=== PATIENT | female | born 1955 | race Caucasian/White ===

== ENCOUNTER 2020-02-14 10:45 | Outpatient (CLI) | payer BC, SELFPAY ==
--- NOTE | ~2020-02-14 | MM_ITS ---
EXAMINATION: MM screening arnel BI w [place] HISTORY: Screening mammogram, family history of breast cancer in her mother. TECHNIQUE: Craniocaudal and mediolateral oblique 3-D tomosynthesis images were obtained and synthetic 2-D images were generated. CAD analysis was submitted and interpreted. COMPARISON: 07/19/2018, 06/28/2018, 04/13/2017 BREAST PARENCHYMAL COMPOSITION: The breasts are heterogeneously dense, which may obscure small masses . FINDINGS: There is no evidence of suspicious mass, calcification, or architectural distortion to sugg est malignancy in either breast. There has been no suspicious interval change. IMPRESSION: 1. No mammographic evidence of malignancy. 2. Recommend routine screening mammography in one year. BI-RADS Category 1: Negative Reviewed, dictated and finalized at location A.
== END 2020-02-14 10:46 | disposition home or self-care (01) ==
LOC: ANHIMG 10:48
PROVIDERS: Visit Provider Advanced Practice Midwife
DX: Z12.31 Encounter for screening mammogram for malignant neoplasm of breast (principal)
CPT/HCPCS: 77063; 77067

== ENCOUNTER 2023-03-16 09:06 | Outpatient (CLI) | payer OTHER, SELFPAY ==
--- NOTE | ~2023-03-16 | MR_ITS ---
EXAMINATION: MR knee LT wo con DATE: 03/16/2023 09:44 INDICATION: Posterior left knee pain and swelling TECHNIQUE: Magnetic resonance imaging (MRI) of the left knee was performed without intravenous contra st. Sequences included coronal PD-weighted FSE, coronal PD-weighted FS FSE, sagittal T2-weighted FSE , sagittal PD-weighted FS FSE and axial PD weighted fat saturated FSE. COMPARISON: None. FINDINGS: Medial compartment: Radial tear/avulsion at the posterior root of the medial meniscus with approximately 1 cm wide menisc al defect and with medial extrusion of the meniscal body. There is an additional longitudinal horizon barry tear plane beginning in the anterior body which extends to the inferior articular surface and whi ch crosses the inner free edge to contact the superior articular surface at the anterior horn. Partia l-thickness chondral ulceration and fissuring which appears to involve greater than 50% the cartilage thickness at the anterior weightbearing medial femoral condyle with no underlying degenerative subar ticular changes. Lateral compartment: Lateral meniscus is normal. Partial-thickness chondral fissure involves up to 50% the cartilage thick ness at the central weightbearing lateral femoral condyle. Patellofemoral compartment: Deep chondral ulceration with scattered underlying subarticular edema-like signal change at both the medial lateral patellar facets and intervening apical ridge. Likely shallow chondral fissuring with s urface irregularity and heterogeneous cartilage signal at the inferior aspect of the trochlear groove and medial trochlea. Ligaments and tendons: There is mild magic angle artifact in the distal posterior cruciate ligament. The anterior cruciate l igament demonstrates a normal angle relative to Blumenstaat's line. It appears thickened with increas ed intrasubstance signal surrounding intact appearing linear fibers with a celery stalk appearance consistent with mucoid degeneration without discrete tear. The medial collateral ligament and fibular collateral ligament complex are normal. Mild tendinopathy at the patellar insertions of the distal q uadriceps and proximal patellar tendons. Moderate-sized enthesophytes at the superficial patellar ins ertion of the distal quadriceps tendon. The visualized medial and lateral hamstring tendons as well a s the iliotibial band are normal. Fluid: Physiologic amount of fluid in the joint space. No loose osteochondral bodies identified. Osseous/other: Bone alignment is normal. No fracture or pathologic marrow replacing process. IMPRESSION: 1. Complex medial meniscal tear including a radial tear/avulsion at the posterior root and a longitud inal horizontal tear at the anterior body and anterior horn. 2. Tricompartmental osteoarthritis, mild with high-grade chondral malacia the patellofemoral compartm ent, mild with extensive moderate grade chondromalacia in the medial compartment and minimal with sma ll focus of moderate grade chondromalacia the lateral compartment. 3. 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 Correlate with physical exam to assess for degree of functional integrity. Reviewed, dictated and finalized at location A. IMPRESSION: 1. Complex medial meniscal tear including a radial tear/avulsion at the posteri or root and a longitudinal horizontal tear at the anterior body and anterior ho rn. 2. Tricompartmental osteoarthritis, mild with high-grade chondral malacia the p atellofemoral compartment, mild with extensive moderate grade chondromalacia in the medial compartment and minimal with small focus of moderate grade chondrom alacia the lateral compartment. 3. 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
== END 2023-03-16 09:07 ==
PROVIDERS: PCP Orthopaedic Surgery; Visit Provider Orthopaedic Surgery
DX: M17.12 Unilateral primary osteoarthritis, left knee (principal); S83.232A Complex tear of medial meniscus, current injury, left knee, initial encounter; X58.XXXA Exposure to other specified factors, initial encounter
CPT/HCPCS: 73721

== ENCOUNTER 2023-04-08 03:48 | Day surgery (SDC) | payer OTHER, SELFPAY ==
--- NOTE | 2023-03-31 14:44 | PC.NURSE ---
Report to the Outpatient Waiting Room, entrance under the green pavilion located off [facility], at time _1100 on date __04/08/23 . Planned Procedure Time: __1300 . Time changes happen often and if your time is changed the preop area will call you the afternoon before. - You and your visitor will be asked to self-screen and do not enter if you have any COVID symptoms. - A mask is optional within the hospital at this time. Patients may have clear liquids (water, carbonated beverages, clear teas, apple juice) until 3 hours prior to surgery with a maximum of 20 ounces. - No food from midnight until time of surgery - Infants may have breast milk until 4 hours before surgery, formula 6 hours prior to surgery. - Children will be allowed to drink immediately following surgery. If applicable, please bring a bottle or sippy cup to assist with drinking. Juice, water, soda, and popsicles are readily available. For infants on formula, please bring formula the day of surgery. Pacifiers are allowed. Take the following medications with a SIP of water the morning of surgery: ____NONE DO NOT STOP ANY OF YOUR OTHER PRESCRIPTION MEDICATIONS PRIOR TO SURGERY ?EXCEPT THE FOLLOWING Medications to discontinue per physician ___ALL VITAMINS AND SUPPLEMENTS 3 DAYS PRE OP .LAST DOSE 04/04/23 Please no make-up, nail tajik, hairspray, perfume, deodorant, or body powder the day of surgery. No jewelry (including any body piercings) or valuables the day of surgery, leave them at home. Please take a shower or bath the night before, or the morning of, surgery with an antibacterial soap. Wear comfortable, loose fitting clothing. Children are encouraged to wear pajamas. - Jewelry must be removed prior to entering the operating room. Rings and piercings that are not removed may be cut off. - The hospital will not accept responsibility for valuables. - Please leave all valuables, including medications, at home the day of surgery. If you are going home after surgery, a licensed bung driver must drive you home. - NO public transportation without another adult if you receive anesthesia. - We recommend that an adult stay with you for 24 hours following discharge. - We also recommend that you do not drive, make important decision, drink alcoholic beverages, or take any drugs that were not prescribed by your health care provider for at least 24 hours after your discharge time. For Pediatric surgeries, we recommend two adults accompany the child home. Follow any additional instructions given to you from your surgeon. If you or anyone in your household have experienced Covid symptoms in the past week, please notify your surgeon or the nurse liaison at the phone number below for possible testing. Telephone instructions given to __PATIENT and asked if any additional questions and then verbalized understanding. Patient advised to call surgeon office or pre surgery nurse liaison [phone] if any additional questions.
[2023-03-31 14:58] VITALS: BMI 24.9
--- NOTE | 2023-04-07 14:23 | WPDANESEPPF ---
Anes - Initial Pre Proc Eval Procedure: Operation Date: 04/08/23 11:00 Proposed Procedures p Left Knee Arthroscopic Partial Medial Meniscectomy - Yrn Javier MD Date/Time: 04/07/23 14:23 Surgeon: Yrn Javier MD Pre Op Diagnosis: Lt Knee Medial Meniscus Tear Patient Data Age: 67 Gender: F Height: 1.63 m Weight: 65.8 kg Allergies Allergy/AdvReac Type Severity Reaction Status Date / Time Sulfa (Sulfonamide Allergy Unknown Swelling Verified 03/31/23 14:30 Antibiotics) of Lip/Tongue/Throat Home Medications Medication Instructions Recorded Confirmed Type fluticasone propionate 50 1 spray intranasal DAILY 02/07/22 03/31/23 History mcg/actuation nasal spray,suspension (Flonase Allergy Relief) omeprazole 40 mg capsule,delayed 40 mg PO DAILY 02/07/22 03/31/23 History release ascorbic acid (vitamin C) 1,000 mg 1 g PO DAILY 03/31/23 03/31/23 History tablet calcium carbonate 600 mg-vitamin 1 tablet PO DAILY 03/31/23 03/31/23 History D3 10 mcg (400 unit) tablet (Calcium 600 + D(3)) cholecalciferol (vitamin D3) 50 50 mcg PO DAILY 03/31/23 03/31/23 History mcg (2,000 unit) tablet cyanocobalamin (vitamin B-12) 1,000 mcg PO DAILY 03/31/23 03/31/23 History 1,000 mcg tablet magnesium citrate 100 mg capsule 250 mg PO DAILY 03/31/23 03/31/23 History multivitamin with minerals 1 tablet PO DAILY 03/31/23 03/31/23 History (Hair,Skin and Nails tablet) zinc 50 mg tablet 50 mg PO DAILY 03/31/23 03/31/23 History hydrocodone 5 mg-acetaminophen 325 1 - 2 tablet PO Q4-6H PRN pain #40 04/08/23 Rx mg tablet tabs Patient hx anesthesia problems: none Family hx anesthesia problems: none Results Review: All pre-operative results and documents have been reviewed as part of the pre-operative evaluation. [facility] Past Medical History Medical History (Updated 04/08/23 @ 08:21 by LIZ Jacobs) History of stress test Left knee pain SVT (supraventricular tachycardia) Surgical History Surgical History (Updated 04/07/23 @ 14:26 by Duncan Dasilva DO) History of cardiac radiofrequency ablation 2018 Hx of removal of ovary Hx of tonsillectomy Family History Family History Father Hypertension Mother Family history of malignant neoplasm Social History Social History Smoking status: Never smoker Alcohol intake: never Lack of Transportation: No Lack of Food: Never True Current Housing: I Have Housing Concerned About Future Housing: No Difficulty Paying Gas/Electric Bills: No Difficulty Paying for Meds: No Currently Unemployed: No Education: High School Diploma/GED Difficulty w/ Childcare or Family Care: No Living arrangements: with family Spiritual care concerns: No Anes - Eval Final PreProcedure Day of Procedure 04/07/23 14:23 Patient weight: normal Heart: regular rate and rhythm Lungs: clear to auscultation and normal air movement Airway: Mallampati scale class II Neurological: alert and oriented Last oral intake: >/= 8 hours ASA classification: III Emergent: no Anesthetic plan: proceed Anesthesia type and monitoring: general LMA and standard monitoring Results Review: All pre-operative results and documents have been reviewed as part of the pre-operative evaluation. Informed Consent: The patient's anesthetic plan and its attendant risks and benefits were discussed with the patient/family/POA. Questions were solicited and answers provided to the satisfaction of the patient/family/POA.
[2023-04-08] VITALS (8 sets, daily range): BP systolic 110–135; BP diastolic 59–93; PULSE 63–76; RESP 10–76; TEMP 36.8; O2SAT 100
[2023-04-08] MEDS: LACTATED RINGERS 1,000 ML 30 ML IV CONT (09:45)
[2023-04-08] MEDS: ACETAMINOPHEN 500 MG TABLET 1000 MG PO (10:00)
[2023-04-08] MEDS: KETOROLAC 15 MG/ML VIAL (*BKC) IV PUSH (10:00)
--- NOTE | 2023-04-08 10:22 | WPDHPUPDATE1 ---
History and Physical Update Update Date/Time: 04/08/23 10:22 History and Physical has been reviewed, including an updated exam of the patient. There are NO changes in the patient's condition. Risks, benefits, and alternatives have been discussed and questions answered. Patient agrees to proceed with procedure.
[2023-04-08] MEDS: ceFAZolin 2 GM/D5W 50 ML 2 GM/50 ML BAG IVPB (10:28)
[2023-04-08] MEDS: BUPIVACAINE/EPINEPHRINE 0.5% 50 ML VIAL 20 ML INFILTRATE (10:56)
--- NOTE | 2023-04-08 11:56 | P.OP_ITS ---
Procedure Note - Detailed Date of Procedure 04/08/23 Pre-op Diagnosis Lt Knee Medial Meniscus Tear Post-op Diagnosis Same Procedure Performed Arthroscopic partial medial meniscectomy, left knee. Surgeon Yrn Javier MD Anesthesia General Findings Complex posterior horn tear. Medial femur chondromalacia grade 2, medial tibia grade 2. Lateral femur chondromalacia grade 1, lateral tibia grade 0. Patellar grade 4, trochlea grade 2. Description of Procedure The patient was identified and the surgical site confirmed and signed in the preoperative holding area. Antibiotics were started per protocol. She was brought to the operative room and transferred to the OR table. A general anesthetic was administered. Supine position with the operative lower extremity position in the leg sandy after placement of a well padded tourniquet. The leg support was lowered and the contralateral limb was supported with a soft bolster. The knee was prepped and draped in the usual sterile fashion. A time- out was performed. The portal sites were marked and infiltrated with 0.5% Marcaine 20 mL. The limb was exsanguinated and the tourniquet inflated to 300 mL Hg. Standard inferolateral and inferomedial portals were established. Inflow was obtained with the saline pump. The camera was introduced. Diagnostic inspection of the joint was accomplished. The meniscus was debrided with the arthroscopic shaver and punches until stable. The radiofrequency probe was also used for further d?bridement. The arthroscopic instruments were removed. The tourniquet released and wounds closed with subcutaneous 4-0 Monocryl absorbable suture. Steri strips and a sterile dressing were applied. A light elastic wrap was placed. The patient was extubated and brought to the recovery room in stable condition. Estimated Blood Loss -5.0 Tourniquet Time 10 Drains No Complications No immediate complications Condition Stable Disposition PACU [facility] Billing Surgery - Charge Forward: Surgery Billing
== END 2023-04-08 13:30 | disposition home or self-care (01) ==
PROVIDERS: PCP Family Medicine; Visit Provider Orthopaedic Surgery
PROC: (CPT 29870; principal; 2023-04-08 11:00)
DX: S83.232A Complex tear of medial meniscus, current injury, left knee, initial encounter (principal); M94.262 Chondromalacia, left knee; Z79.891 Long term (current) use of opiate analgesic; Z79.51 Long term (current) use of inhaled steroids; Z86.79 Personal history of other diseases of the circulatory system; Z80.9 Family history of malignant neoplasm, unspecified; X58.XXXA Exposure to other specified factors, initial encounter
CPT/HCPCS: 29881; A9270; J0690; J1100; J1170; J1885; J2250; J2371; J2405; J2704; J3010; J7120

== ENCOUNTER 2023-05-26 01:06 | Day surgery (SDC) | payer MEDICARE, SELFPAY ==
[2023-05-22 14:11] VITALS: BMI 23.8
--- NOTE | 2023-05-22 14:19 | PC.NURSE ---
Report to the Outpatient Waiting Room, entrance under the green pavilion located off [facility], at time _0800 on date _05/26/23. Planned Procedure Time: __100_. Time changes happen often and if your time is changed the preop area will call you the afternoon before. - You and your visitor will be asked to self-screen and do not enter if you have any COVID symptoms. - A mask is optional within the hospital at this time. Patients may have clear liquids (water, carbonated beverages, clear teas, apple juice) until 3 hours prior to surgery with a maximum of 20 ounces. - No food from midnight until time of surgery - Infants may have breast milk until 4 hours before surgery, formula 6 hours prior to surgery. - Children will be allowed to drink immediately following surgery. If applicable, please bring a bottle or sippy cup to assist with drinking. Juice, water, soda, and popsicles are readily available. For infants on formula, please bring formula the day of surgery. Pacifiers are allowed. Take the following medications with a SIP of water the morning of surgery: _NONE DO NOT STOP ANY OF YOUR OTHER PRESCRIPTION MEDICATIONS PRIOR TO SURGERY ?EXCEPT THE FOLLOWING Medications to discontinue per physician VITAMINS/ SUPPLIMENTS Date to take last dose 05/22/23 Please no make-up, nail [place], hairspray, perfume, deodorant, or body powder the day of surgery. No jewelry (including any body piercings) or valuables the day of surgery, leave them at home. Please take a shower or bath the night before, or the morning of, surgery with an antibacterial soap. Wear comfortable, loose fitting clothing. Children are encouraged to wear pajamas. - Jewelry must be removed prior to entering the operating room. Rings and piercings that are not removed may be cut off. - The hospital will not accept responsibility for valuables. - Please leave all valuables, including medications, at home the day of surgery. If you are going home after surgery, a licensed bus van driver must drive you home. - NO public transportation without another adult if you receive anesthesia. - We recommend that an adult stay with you for 24 hours following discharge. - We also recommend that you do not drive, make important decision, drink alcoholic beverages, or take any drugs that were not prescribed by your health care provider for at least 24 hours after your discharge time. For Pediatric surgeries, we recommend two adults accompany the child home. Follow any additional instructions given to you from your surgeon. If you or anyone in your household have experienced Covid symptoms in the past week, please notify your surgeon or the nurse liaison at the phone number below for possible testing. Telephone instructions given to PATIENT__and asked if any additional questions and then verbalized understanding. Patient advised to call surgeon office or pre surgery nurse liaison [phone] if any additional questions.
[2023-05-26] MEDS: ACETAMINOPHEN 500 MG TABLET 1000 MG PO (08:24)
[2023-05-26 08:54] VITALS: BP 124/76; PULSE 78; RESP 16; TEMP 36.5; O2SAT 99
[2023-05-26] MEDS: LACTATED RINGERS 1,000 ML 30 ML IV CONT ×2 (09:25→11:23)
--- NOTE | 2023-05-26 09:32 | PM.IMHP ---
H&P: HPI History of Present Illness Date/Time: 05/26/23 09:32 Chief Complaint: Cervical dysplasia Narrative: this patient is a 67-year-old female with cervical dysplasia. We have agreed to complete the evaluation of her cervix and endometrium with a hysteroscopy D&C. She can not be monitored completely as an outpatient at this time. Her cervix is stenotic. She understands the procedure. He has been explained to her in detail. She understands the risks. She understands that injuries may occur that result in hospitalization, more surgery, and severe illness. She understands risks, benefits, and alternatives. She is completed the informed consent process is ready to proceed. She denies any nausea, vomiting, fever, chills. She denies any chest pain or shortness of breath. Review of Systems Review of Systems: All systems reviewed & are unremarkable except as noted in HPI and below Constitutional: Constitutional: Denies chills, Denies fatigue, Denies fever(s) and Denies weakness Eyes: Eyes: Denies blurry vision, Denies change in vision, Denies loss of peripheral vision, Denies loss of vision, Denies other visual disturbances and Denies eye pain ENT: Denies vertigo, Denies dizziness, Denies hearing loss, Denies mouth pain, Denies nasal obstruction, Denies neck mass and Denies neck pain Cardiovascular: Cardiovascular: Denies chest pain, Denies diaphoresis, Denies syncope, Denies leg edema and Denies dyspnea Respiratory: Respiratory: Denies chest congestion, Denies cough, Denies hemoptysis, Denies dyspnea and Denies wheezing Gastrointestinal: Gastrointestinal: Denies abdominal pain, Denies constipation, Denies diarrhea, Denies nausea and Denies vomiting Genitourinary: Genitourinary: Denies hematuria, Denies change in libido, Denies nocturia, Denies genital lesions, Denies flank pain and Denies urinary urgency Musculoskeletal: Musculoskeletal: Denies abnormal gait, Denies back pain, Denies myalgias, Denies arthralgias, Denies joint swelling, Denies muscle weakness and Denies neck pain Integumentary/Breasts: Skin/Breast: Denies swelling, Denies breast pain, Denies breast mass, Denies dry skin, Denies nipple discharge, Denies unusual bruising and Denies jaundice Neurologic: Denies Neuro-related abnormal movements, Denies Abnormal speech present, Denies abnormal gait, Denies behavioral changes, Denies confusion, Denies vertigo, Denies dizziness, Denies syncope, Denies loss of vision, Denies memory loss, Denies convulsions and Denies weakness Psychiatric: Psychiatric: Denies abnormal sleep pattern, Denies behavioral changes, Denies change in libido, Denies confusion, Denies depression, Denies anhedonia and Denies memory loss Endocrine: Endocrine: Reports no additional endocrine complaints, Denies change in libido and Denies fatigue Hematologic/Lymphatic: Hematologic/Lymphatic: Reports no additional hematologic/lymphatic complaints Allergic/Immunologic: Allergic/Immunologic: Reports no additional allergic/immunologic complaints and Denies wheezing PMFSH Past Medical History Medical History History of stress test Left knee pain SVT (supraventricular tachycardia) Surgical History Surgical History History of cardiac radiofrequency ablation 2018 Hx of removal of ovary Hx of tonsillectomy Status post medial meniscectomy of left knee (~04/08/23) Family History Family History Father Hypertension Mother Family history of malignant neoplasm Social History Social History Smoking packs per day: 0.5 Smoking cigarettes per day: 10.0 Years smoked: 10 Smoking pack-years: 5.00 Smoking status: Former smoker Additional smoking assessment comments: STOPPED 1999 Alcohol intake: current Drinks per week: 3 Lack of
--- NOTE | 2023-05-26 09:35 | WPDHPUPDATE1 ---
History and Physical Update Update Date/Time: 05/26/23 09:35 History and Physical has been reviewed, including an updated exam of the patient. There are NO changes in the patient's condition. Risks, benefits, and alternatives have been discussed and questions answered. Patient agrees to proceed with procedure.
--- NOTE | 2023-05-26 09:35 | WPDANESEPPF ---
Anes - Initial Pre Proc Eval Procedure: Operation Date: 05/26/23 10:00 Proposed Procedures p Hysteroscopy Dilation and Curettage with Endocervical Curettage - Anthony Whitley MD Date/Time: 05/26/23 09:35 Surgeon: Anthony Whitley MD Pre Op Diagnosis: dysplasia of cervix Patient Data Age: 67 Gender: F Height: 1.65 m Weight: 71.4 kg Last Vital Signs Temp 97.7 F 05/26/23 08:54 Pulse 78 05/26/23 08:54 Resp 16 05/26/23 08:54 BP 124/76 05/26/23 08:54 Pulse Ox 99 05/26/23 08:54 O2 Del Method Room Air 05/26/23 08:54 Allergies Allergy/AdvReac Type Severity Reaction Status Date / Time Sulfa (Sulfonamide Allergy Unknown Swelling Verified 05/26/23 08:22 Antibiotics) of Lip/Tongue/Throat Home Medications Medication Instructions Recorded Confirmed Type fluticasone propionate 50 1 spray intranasal DAILY 02/07/22 05/22/23 History mcg/actuation nasal spray,suspension (Flonase Allergy Relief) omeprazole 40 mg capsule,delayed 40 mg PO DAILY 02/07/22 05/22/23 History release ascorbic acid (vitamin C) 1,000 mg 1 g PO DAILY 03/31/23 05/22/23 History tablet calcium carbonate 600 mg-vitamin 2 tablet PO DAILY 03/31/23 05/22/23 History D3 10 mcg (400 unit) tablet (Calcium 600 + D(3)) cholecalciferol (vitamin D3) 50 50 mcg PO DAILY 03/31/23 05/22/23 History mcg (2,000 unit) tablet cyanocobalamin (vitamin B-12) 1,000 mcg PO DAILY 03/31/23 05/22/23 History 1,000 mcg tablet magnesium citrate 100 mg capsule 250 mg PO DAILY 03/31/23 05/22/23 History zinc 50 mg tablet 50 mg PO DAILY 03/31/23 05/22/23 History hydrocodone 5 mg-acetaminophen 325 1 - 2 tablet PO Q4-6H PRN pain #40 04/15/23 05/22/23 Rx mg tablet tabs Patient hx anesthesia problems: none Family hx anesthesia problems: none Results Review: All pre-operative results and documents have been reviewed as part of the pre-operative evaluation. PMFSH Past Medical History Medical History History of stress test Left knee pain SVT (supraventricular tachycardia) Surgical History Surgical History History of cardiac radiofrequency ablation 2018 Hx of removal of ovary Hx of tonsillectomy Status post medial meniscectomy of left knee (~04/08/23) Family History Family History Father Hypertension Mother Family history of malignant neoplasm Social History Social History Smoking packs per day: 0.5 Smoking cigarettes per day: 10.0 Years smoked: 10 Smoking pack-years: 5.00 Smoking status: Former smoker Additional smoking assessment comments: STOPPED 1999 Alcohol intake: current Drinks per week: 3 Lack of Transportation: No Lack of Food: Never True Current Housing: I Have Housing Concerned About Future Housing: No Difficulty Paying Gas/Electric Bills: No Difficulty Paying for Meds: No Currently Unemployed: No Education: High School Diploma/GED Difficulty w/ Childcare or Family Care: No Living arrangements: with family Spiritual care concerns: No Anes - Eval Final PreProcedure Day of Procedure 05/26/23 09:35 Patient weight: normal Heart: regular rate and rhythm Lungs: clear to auscultation Airway: Mallampati scale class II Neurological: alert and oriented Last oral intake: >/= 8 hours ASA classification: III Emergent: no Anesthetic plan: proceed Anesthesia type and monitoring: general GIVS and standard monitoring Results Review: All pre-operative results and documents have been reviewed as part of the pre-operative evaluation. Informed Consent: The patient's anesthetic plan and its attendant risks and benefits were discussed with the patient/family/POA. Questions were solicited and answers provided to the satisfaction of the patient/fam
[2023-05-26] MEDS: LIDOCAINE HCL 1% LOCAL INJ 20 ML VIAL 10 ML INFILTRATE (10:00)
[2023-05-26] MEDS: KETOROLAC 30 MG/ML VIAL (*BKC) IV PUSH (10:09)
[2023-05-26 10:44] VITALS: BP 125/77; PULSE 87; RESP 14; O2SAT 98
[2023-05-26] MEDS: fentaNYL CITRATE INJ (*CRX) 100 MCG/2 ML VIAL 25 MCG IV PUSH ×2 (10:53→10:57)
--- NOTE | 2023-05-26 11:02 | W.PM.PROC2 ---
Procedure Note - Detailed Date of Procedure 05/26/23 Pre-op Diagnosis dysplasia of cervix Post-op Diagnosis Same (With endometrial mass, irregular surface tissue of the endometrium) Procedure Performed Hysteroscopy D&C Surgeon Anthony Whitley MD Anesthesia MAC Indications abnormal uterine bleeding Findings Irregular endometrial surfaces with atypical appearance and endometrial mass. Murky, opaque white yellow fluid egress from the endometrial cavity. Profoundly scarred distal endocervix. Description of Procedure the patient was taken the operating room. She was prepped and draped in the dorsal lithotomy position after induction of mac anesthesia. A speculum was placed in the vagina. The cervix was grasped with a tenaculum. The cervix was dilated about 1 cm. attempted to dissect open the ectocervical os. This failed with false passages created. A excisional biopsy was performed of the central portion of the cervix in order to create a passageway to the endometrium. This would also provide a thorough biopsy the distal endocervix. Narrow top-hat was used to excise the central portion using cutting cautery. Cut surfaces were cauterized and Monsel's was applied at the end of the procedure. The hysteroscope was inserted. The intrauterine cavity and endocervix were evaluated. The above findings were noted. Hysteroscope was withdrawn. A medium-size curette was used to curettage all the surfaces were within the endometrial cavity. It is uncertain whether the endometrium was sampled. These false passages that were endocervical dissection were difficult to navigate. the sample was collected on Telfa and sent to pathology. The hysteroscope was reinserted and the above findings were noted. Patient tolerated the procedure well. The speculum and tenaculum were removed. She was taken recovery room in stable condition. Sponge lap and needle counts were correct x2. Estimated Blood Loss 40 Drains No Packing No Pathology Yes Complications No immediate complications Condition Stable Disposition PACU
[2023-05-26 11:10] VITALS: BP 122/73; PULSE 67; RESP 16; O2SAT 94
[2023-05-26] MEDS: oxyCODONE HCL (*CRX) 5 MG TAB IR PO (11:11)
[2023-05-26 11:40] VITALS: BP 144/76; PULSE 63; RESP 16; O2SAT 98
== END 2023-05-26 11:52 | disposition home or self-care (01) ==
PROVIDERS: PCP Family Medicine; Visit Provider Obstetrics & Gynecology
PROC: 0U5B8ZZ Destruction of Endometrium, Via Natural or Artificial Opening Endoscopic (ICD-10-PCS; CPT 58563; principal; 2023-05-26 10:00)
DX: N87.9 Dysplasia of cervix uteri, unspecified (principal); Z87.891 Personal history of nicotine dependence
CPT/HCPCS: 58558; 88305; A9270; J1100; J1885; J2250; J2405; J2704; J3010; J7120

== ENCOUNTER 2023-06-19 11:05 | Outpatient (CLI) | payer MEDICARE, SELFPAY ==
--- NOTE | 2023-06-19 11:16 | ECG_ITS ---
Measurements Intervals Ione Rate: 80 P: 4 KS: 145 QRS: -2 QRSD: 77 T: 10 QT: 355 QTc: 409 Interpretive Statements SINUS RHYTHM WITHIN NORMAL LIMITS NO PREVIOUS ECG AVAILABLE FOR COMPARISON Electronically Signed On 06-19-2023 13:58:50 [employer]G [employer] by Horacio Donnelly M.D.
[2023-06-19 11:38] LABS: Basophils Absolute Auto 0.1 K/mm3 (0.0-0.1); Basophils Percent Auto 0.6 % (0.2-1.2); Eosinophils Absolute Auto 0.1 K/mm3 (0-0.3); Eosinophils Percent Auto 0.6 % (0-4.4); Hematocrit 43.2 % (37.0-47.0); Hemoglobin 13.8 g/dL (12.0-15.0); Immature Granulocyte Absolute 0.02 K/mm3 (0.00-0.031); Immature Granulocyte Percent A 0.2 % (0-0.5); Lymphocytes Absolute Auto 1.75 K/mm3 (0.9-3.2); Lymphocytes Percent Auto 21.7 % (18.3-44.2); Mean Corpuscular HGB Conc 31.9 g/dl (32-36); Mean Corpuscular Hemoglobin 31.9 pg (26-34); Mean Platelet Volume 9.7 fl (7.4-10.4); Monocytes Absolute Auto 0.5 K/mm3 (0.1-0.6); Monocytes Percent Auto 5.8 % (2.6-8.5); Neutrophils Absolute Auto 5.7 K/mm3 (1.3-6.7); Neutrophils Percent Auto 71.1 % (45.5-73.1); Platelet Count Result 299 k/mm3 (150-375); Red Blood Count 4.32 M/mm3 (4.2-5.4); Red Cell Distribution Width 12.9 % (11.5-14.5); White Blood Count 8.1 K/mm3 (4.5-10.0)
[2023-06-19 11:49] LABS: Alanine Aminotransferase 30 U/L (6-35); Albumin Level 4.8 g/dL (3.5-5.1); Alkaline Phosphatase 112 U/L (38-126); Anion Gap 7 mmol/L (8-16); Aspartate Amino Transferase 30 U/L (14-36); Bilirubin,Total 0.6 mg/dL (0.2-1.3); Blood Urea Nitrogen 15 mg/dL (7-17); Carbon Dioxide 32 mmol/L (22-30); Chloride 101 mmol/L (98-107); Estimated Glomerular Filt Rate > 60; Glucose 98 mg/dL (65-110); Potassium 4.6 mmol/L (3.4-5.0); Sodium 140 mmol/L (137-145)
== END 2023-06-19 11:06 | disposition home or self-care (01) ==
LOC: ANHSURGERY 11:08
PROVIDERS: PCP Family Medicine; Visit Provider Obstetrics & Gynecology
DX: Z01.818 Encounter for other preprocedural examination (principal); D06.9 Carcinoma in situ of cervix, unspecified; Z86.79 Personal history of other diseases of the circulatory system
CPT/HCPCS: 36415; 80053; 85025; 86850; 86900; 86901; 93005

== ENCOUNTER 2023-07-01 18:04 | Inpatient (IN) | payer MEDICARE, SELFPAY ==
[2023-06-17 10:03] VITALS: BMI 25.7
--- NOTE | 2023-06-17 10:28 | PC.NURSE ---
Report to the Outpatient Waiting Room, entrance under the green pavilion located off [facility], at time __8:00AM on date __07/01/23 . Planned Procedure Time: _10:00AM . Time changes happen often and if your time is changed the preop area will call you the afternoon before. - You and your visitor will be asked to self-screen and do not enter if you have any COVID symptoms. - A mask is optional within the hospital at this time. Patients may have clear liquids (water, carbonated beverages, clear teas, apple juice) until 3 hours prior to surgery with a maximum of 20 ounces. - No food from midnight until time of surgery. Take the following medications with a SIP of water the morning of surgery: ____NONE DO NOT STOP ANY OF YOUR OTHER PRESCRIPTION MEDICATIONS PRIOR TO SURGERY ?EXCEPT THE FOLLOWING Medications to discontinue per physician __HOLD ALL VITAMINS/SUPPLEMENTS 3 DAYS PRE-OP PER ANESTHESIA Date to take last dose 06/27/23 Please no make-up, nail sami, hairspray, perfume, deodorant, or body powder the day of surgery. No jewelry (including any body piercings) or valuables the day of surgery, leave them at home. Please take a shower or bath the night before, or the morning of, surgery with an antibacterial soap. Wear comfortable, loose fitting clothing. - Jewelry must be removed prior to entering the operating room. Rings and piercings that are not removed may be cut off. - The hospital will not accept responsibility for valuables. - Please leave all valuables, including medications, at home the day of surgery. If you are going home after surgery, a licensed trencher driver must drive you home. - NO public transportation without another adult if you receive anesthesia. - We recommend that an adult stay with you for 24 hours following discharge. - We also recommend that you do not drive, make important decision, drink alcoholic beverages, or take any drugs that were not prescribed by your health care provider for at least 24 hours after your discharge time. Follow any additional instructions given to you from your surgeon. If you or anyone in your household have experienced Covid symptoms in the past week, please notify your surgeon or the nurse liaison at the phone number below for possible testing. Telephone instructions given to ____PATIENT and asked if any additional questions and then verbalized understanding. Patient advised to call surgeon office or pre surgery nurse liaison [phone] if any additional questions.
--- NOTE | 2023-06-30 14:18 | WPDANESEPPF ---
Anes - Initial Pre Proc Eval Procedure: Operation Date: 07/01/23 10:00 Proposed Procedures p Total Laparoscopic Hysterectomy with Left Salpingo-oophorectomy - Anthony Whitley MD Date/Time: 06/30/23 14:18 Surgeon: Anthony Whitley MD Pre Op Diagnosis: Lesion of Endometrium Patient Data Age: 67 Gender: F Height: 1.63 m Weight: 68 kg Allergies Allergy/AdvReac Type Severity Reaction Status Date / Time Sulfa (Sulfonamide Allergy Unknown Swelling Verified 07/01/23 08:28 Antibiotics) of Lip/Tongue/Throat Home Medications Medication Instructions Recorded Confirmed Type fluticasone propionate 50 1 spray intranasal DAILY 02/07/22 07/01/23 History mcg/actuation nasal spray,suspension (Flonase Allergy Relief) omeprazole 40 mg capsule,delayed 40 mg PO DAILY 02/07/22 07/01/23 History release ascorbic acid (vitamin C) 1,000 mg 1 g PO DAILY 03/31/23 07/01/23 History tablet calcium carbonate 600 mg-vitamin 2 tablet PO DAILY 03/31/23 07/01/23 History D3 10 mcg (400 unit) tablet (Calcium 600 + D(3)) cholecalciferol (vitamin D3) 50 50 mcg PO DAILY 03/31/23 07/01/23 History mcg (2,000 unit) tablet cyanocobalamin (vitamin B-12) 1,000 mcg PO DAILY 03/31/23 07/01/23 History 1,000 mcg tablet zinc 50 mg tablet 50 mg PO DAILY 03/31/23 07/01/23 History Patient hx anesthesia problems: none Family hx anesthesia problems: none Results Review: All pre-operative results and documents have been reviewed as part of the pre-operative evaluation. [facility] Past Medical History Medical History (Updated 06/30/23 @ 14:19 by Duncan Dasilva DO) GERD (gastroesophageal reflux disease) History of stress test Left knee pain SVT (supraventricular tachycardia) Surgical History Surgical History History of cardiac radiofrequency ablation 2018 Hx of removal of ovary Hx of tonsillectomy Status post medial meniscectomy of left knee (~04/08/23) Family History Family History Father Hypertension Mother Family history of malignant neoplasm Social History Social History Smoking packs per day: 1 Smoking cigarettes per day: 20.0 Years smoked: 8 Smoking pack-years: 8.00 Smoking status: Former smoker Tobacco type: cigarettes Smoking end date: 11/15/84 Additional smoking assessment comments: STOPPED 1999 Alcohol intake: current Drinks per week: 4 Lack of Transportation: No Lack of Food: Never True Current Housing: I Have Housing Concerned About Future Housing: No Difficulty Paying Gas/Electric Bills: No Difficulty Paying for Meds: No Currently Unemployed: No Education: High School Diploma/GED Difficulty w/ Childcare or Family Care: No Living arrangements: with family Additional living arrangements comments: DOM Spiritual care concerns: No Anes - Eval Final PreProcedure Day of Procedure 06/30/23 14:18 Patient weight: overweight Heart: regular rate and rhythm Lungs: clear to auscultation Airway: Mallampati scale class III Neurological: alert and oriented Last oral intake: >/= 8 hours ASA classification: III Emergent: no Anesthetic plan: proceed Anesthesia type and monitoring: general ETT and standard monitoring Results Review: All pre-operative results and documents have been reviewed as part of the pre-operative evaluation. Informed Consent: The patient's anesthetic plan and its attendant risks and benefits were discussed with the patient/family/POA. Questions were solicited and answers provided to the satisfaction of the patient/family/POA.
[2023-07-01] VITALS (9 sets, daily range): BP systolic 96–142; BP diastolic 55–90; PULSE 82–116; RESP 11–18; TEMP 36.1–37; O2SAT 96–100
--- NOTE | ~2023-07-01 | XR_ITS ---
EXAMINATION: XR fluoroscopy no charge DATE: 07/01/2023 15:53 INDICATION: Attempted stent placement TECHNIQUE: Single fluoroscopic image the lower pelvis was obtained during procedure performed by Dr. Dowling. Radiologist was not present for the imaging or procedure. The amount of fluoroscopy time us ed during this procedure was 0.1 minutes. COMPARISON: None. FINDINGS/IMPRESSION: Surgical instrumentation projects over the lower pelvis. See procedure note for further detail. Reviewed, dictated and finalized at location A. TENANT BALLISTICS
--- NOTE | ~2023-07-01 | XR_ITS ---
EXAMINATION: XR abdomen/kub 1V DATE: 07/01/2023 16:51 INDICATION: Right ureteral injury. TECHNIQUE: A supine view of the abdomen was obtained. COMPARISON: None. FINDINGS: There are no dilated loops of bowel. A surgical drain overlies the pelvis. There is a right internal ureteral stent in expected position. Skin iris are noted. IMPRESSION: 1. Right internal ureteral stent in expected position. Reviewed, dictated and finalized at location A. TERM CARE PHLEBOTOMIST
[2023-07-01] MEDS: ACETAMINOPHEN 500 MG TABLET 1000 MG PO (08:59)
[2023-07-01] MEDS: LACTATED RINGERS 1,000 ML 30 ML IV CONT ×5 (09:10→17:20)
[2023-07-01] MEDS: KETOROLAC 15 MG/ML VIAL (*BKC) IV PUSH (09:11)
--- NOTE | 2023-07-01 09:53 | PM.IMHP ---
H&P: HPI History of Present Illness Date/Time: 07/01/23 09:53 Chief Complaint: cervical dysplasia Narrative: This patient is a 67-year-old female with endometrial lesion, family history of ovarian cancer, and cervical dysplasia. We have agreed to perform total laparoscopic hysterectomy bilateral salpingo-oophorectomy. She understands the procedure. Has been explained her in detail. She understands the risks. She understands that injuries may occur that result in hospitalization, more surgery, and severe illness. She understands that there is risk of hemorrhage and infection. She denies any nausea, vomiting, fever, chills. She denies any chest pain or shortness of breath. Review of Systems Review of Systems: All systems reviewed & are unremarkable except as noted in HPI and below Constitutional: Constitutional: Denies chills, Denies fatigue, Denies fever(s) and Denies weakness Eyes: Eyes: Denies blurry vision, Denies change in vision, Denies loss of peripheral vision, Denies loss of vision, Denies other visual disturbances and Denies eye pain ENT: Denies vertigo, Denies dizziness, Denies hearing loss, Denies mouth pain, Denies nasal obstruction, Denies neck mass and Denies neck pain Cardiovascular: Cardiovascular: Denies chest pain, Denies diaphoresis, Denies syncope, Denies leg edema and Denies dyspnea Respiratory: Respiratory: Denies chest congestion, Denies cough, Denies hemoptysis, Denies dyspnea and Denies wheezing Gastrointestinal: Gastrointestinal: Denies abdominal pain, Denies constipation, Denies diarrhea, Denies nausea and Denies vomiting Genitourinary: Genitourinary: Denies hematuria, Denies change in libido, Denies nocturia, Denies genital lesions, Denies flank pain and Denies urinary urgency Musculoskeletal: Musculoskeletal: Denies abnormal gait, Denies back pain, Denies myalgias, Denies arthralgias, Denies joint swelling, Denies muscle weakness and Denies neck pain Integumentary/Breasts: Skin/Breast: Denies swelling, Denies breast pain, Denies breast mass, Denies dry skin, Denies nipple discharge, Denies unusual bruising and Denies jaundice Neurologic: Denies Neuro-related abnormal movements, Denies Abnormal speech present, Denies abnormal gait, Denies behavioral changes, Denies confusion, Denies vertigo, Denies dizziness, Denies syncope, Denies loss of vision, Denies memory loss, Denies convulsions and Denies weakness Psychiatric: Psychiatric: Denies abnormal sleep pattern, Denies behavioral changes, Denies change in libido, Denies confusion, Denies depression, Denies anhedonia and Denies memory loss Endocrine: Endocrine: Reports no additional endocrine complaints, Denies change in libido and Denies fatigue Hematologic/Lymphatic: Hematologic/Lymphatic: Reports no additional hematologic/lymphatic complaints Allergic/Immunologic: Allergic/Immunologic: Reports no additional allergic/immunologic complaints and Denies wheezing [facility] Past Medical History Medical History (Updated 07/01/23 @ 09:54 by Anthony Whitley MD) GERD (gastroesophageal reflux disease) History of stress test Left knee pain SVT (supraventricular tachycardia) Surgical History Surgical History History of cardiac radiofrequency ablation 2017 Hx of removal of ovary Hx of tonsillectomy Status post medial meniscectomy of left knee (~04/08/23) Family History Family History Father Hypertension Mother Family history of malignant neoplasm Social History Social History Smoking packs per day: 1 Smoking cigarettes per day: 20.0 Years smoked: 8 Smoking pack-years: 8.00 Smoking status: Former smoker Tobacco type: cigarettes Smoking end date: 11/15/84 Additional smoking assessment comments: STOPPED 1999 Alcohol intake: current Drinks per week: 4 Lack of Transportation: No
--- NOTE | 2023-07-01 09:55 | WPDHPUPDATE1 ---
History and Physical Update Update Date/Time: 07/01/23 09:55 History and Physical has been reviewed, including an updated exam of the patient. There are NO changes in the patient's condition. Risks, benefits, and alternatives have been discussed and questions answered. Patient agrees to proceed with procedure.
[2023-07-01] MEDS: ceFAZolin 2 GM/D5W 50 ML 2 GM/50 ML BAG IVPB (10:14)
[2023-07-01] MEDS: ceFAZolin SODIUM 1 GM VIAL (10:53)
--- NOTE | 2023-07-01 15:32 | W.PM.PROC2 ---
Procedure Note - Detailed Date of Procedure 07/01/23 Pre-op Diagnosis Lesion of Endometrium Right ureteral injury Post-op Diagnosis Same Procedure Performed Abdominal exploration in conjunction with Dr. Whitley Cystoscopy Right ureteral stent insertion Surgeon Mae Dyer MD Anesthesia General Indications This is a 67-year-old female who was taken to the operating room with OBGYN for laparoscopic hysterectomy, converted to open procedure. performed hysterectomy and at conclusion of case perform cystoscopy after IV indigo and identified blue dye from the left ureter and not the right ureteral orifice. The patient was then re-explored and a suture was removed fat the suspected to be surrounding the ureter. At this point urology was called emergently to the operating room for evaluation. Findings Apparent injury to right ureter with right ureteral stent placed easily. No bladder injury. Description of Procedure The patient was encountered asleep in the operating room with an open abdomen. We inspected the pelvis and the right ureter was identified without apparent injury or transection, however Dr. Whitley explained that stitch around the ureter was removed prior to my arrival to the operating. We then performed cystoscopy with a 22 F rigid cystoscope. Inspection of the bladder did not reveal any injury, the bladder was filled and there was no extravasation of fluid. We attempted to perform fluoroscopy however due to the bed in which the patient was positioned we could not reveal images of the ureter. Therefore we cannulated the right ureteral orifice with a 5 F open-ended catheter and advanced a Sensor wire. There was no resistance with placement of the wire. Over the wire we then placed a 6 F variable length stent again without resistance. A curl was noted in the bladder. De catheter was then inserted. At this point, we reinspected the abdominal incision and noted the ureteral stent to be appropriately palpable in the ureter. The case was then turned over to Dr. Whitley. - Plan KUB in recovery room to ensure appropriate proximal placement of stent - Plan FLORIDA creatinine prior to discharge from the hospital. -as long as no issues during hospital stay, we will plan right ureteral stent for 2 to 3 weeks. We will then plan a renal ultrasound and Lasix renal scan approximately 1 month after stent removal to ensure appropriate healing. Condition Stable Disposition Other
[2023-07-01] MEDS: ceFAZolin SODIUM 1 GM VIAL 2 GM IV PUSH (15:52)
--- NOTE | 2023-07-01 16:20 | SUR.OPER ---
Surgeon performed cystoscopy after closing of incision. Surgeon decided to re-open. Patient re-prepped and draped. New incision made at 13:50. Urology consulted. See surgeon's operative note. Chris Rosario RN
--- NOTE | 2023-07-01 16:32 | W.PM.PROC2 ---
Procedure Note - Detailed Date of Procedure 07/01/23 Pre-op Diagnosis Lesion of Endometrium, family history ovarian cancer, cervical dysplasia Post-op Diagnosis Same Procedure Performed total abdominal hysterectomy left salpingo-oophorectomy (Total laparoscopic hysterectomy converted to open laparotomy) Surgeon Anthony Whitley MD Anesthesia General Indications Cervical dysplasia, endometrial lesion, family history of ovarian cancer Findings dense scarring with vascularity throughout the pelvis. There was adhesions between left ovary and the colon, the left ovary in the rectum, the left ovary and the uterus, the left ovary and the pelvic sidewall. Dense adhesions around the right aspect of the lower uterine segment and cervix. Thickened tissue in this area with extreme vascularity. Adhesions between the rectum and the uterus Description of Procedure This patient was taken to the operating room. She was prepped and draped in the dorsal lithotomy position after induction of general anesthesia. The uterine manipulator and Gerald cup were placed. This was done with a speculum and tenaculum. The speculum was placed. The cervix was grasped with a tenaculum. The stay sutures were placed at 3 and 9:00 a.m.. The stay sutures of 0 Vicryl were brought through the appropriately sized Gerald cup. The tip of the OMI manipulator was placed in the intrauterine cavity. The cup was slid into place around the cervix and into the fornices. It was locked into place. The sutures were then wrapped around the handle and tied under tension. A 5 mm skin incision was made in the left upper quadrant the abdomen. A 5 mm trocar was inserted into the intrauterine cavity under direct visualization of the scope. Pneumoperitoneum was achieved. A left lower quadrant 11 mm incision was made with scalpel. An 11 mm trocar was inserted into the anterior abdominal cavity under direct visualization the scope. A 5 mm infraumbilical incision was made with a scalpel and a 5 mm trocar was inserted the intra-abdominal cavity under direct visualization of the scope. after 15 minutes of adhesiolysis the case was converted to an open laparotomy. A skin incision was made from the infraumbilical laparoscopic it decision she does suprapubic area. This made with a scalpel and carried down to the fascia. rectus muscle were the preperitoneal fat was dissected bluntly. The peritoneal cavity was entered bluntly. The peritoneal incision was extended superiorly and inferiorly with good dissolution the bladder. A bowel for retractor was placed in the abdomen. The bowel was packed into the upper abdomen and a retractor affixed to the upper arm was placed. A bladder blade was also inserted with the bowel for retractor. 2 hours of adhesiolysis was performed in the pelvis. Rectum was from the uterus. Lateral aspects of the uterus were clamped with Leatha clamps in a stepwise fashion as they were transected and suture ligated down to the level of the uterine arteries. As mentioned above there was marked dense, vascular scar tissue around the right parametrium and paracervical tissue. Clamps and this area were placed very tightly along the uterus. They were suture ligated. This was the area that would later become of concern as the ureter was either kinked or ligated with suture in this area. the ureters were palpated bilaterally. They were felt to be adequately away from the uterus and cervix. The cervical paracervical tissue was clamped and cut in stepwise fashion down the vaginal cuff. The vaginal cuff incision was made with Quang scissors. This was made in circumferential fashion around the cervix and cervix was amputated the cuff was closed with 0 Vicryl running fashion. Throughout the case small bleeding areas had to be addressed. Cautery was used, sutures were used, along with the section. adhesiolysis was performed around the left ovary. Blunt and sharp disse
[2023-07-01] MEDS: fentaNYL CITRATE INJ (*CRX) 100 MCG/2 ML VIAL 25 MCG IV PUSH ×6 (16:36→17:28)
--- NOTE | 2023-07-01 16:43 | SUR.PHASEI ---
PORTABLE KUB DONE.
--- NOTE | 2023-07-01 16:55 | SUR.PHASEI ---
DR. TAMAYO NOTIFIED RE: BLOOD PRESSURES TRENDING DOWN SOMEWHAT; INSTRUCTED TO GIVE 5TH LITER OF LR.
--- NOTE | 2023-07-01 18:07 | SUR.PHASEI ---
5TH BAG OF LR WAS HUNG AT 1730; 600 INFUSED.
--- NOTE | 2023-07-01 18:23 | OBPPTRN ---
1813 Patient transferred to post room #281 via bed. Support person present. Oriented to unit, room, information board, admission packet and security measures. Patient verbalizes understanding.
[2023-07-01] MEDS: ONDANSETRON INJ 4 MG/2 ML VIAL IV PUSH (18:54)
[2023-07-01] MEDS: KETOROLAC 30 MG/ML VIAL (*BKC) IV PUSH (21:55)
[2023-07-01] MEDS: HYDROcodone/acetaminophen (*CRX) 10-325 MG TABLET 1 TAB PO (21:56)
[2023-07-01] MEDS: SIMETHICONE 80 MG TAB.CHEW PO (21:56)
[2023-07-02] MEDS: SIMETHICONE 80 MG TAB.CHEW PO ×5 (01:11→19:45)
[2023-07-02] MEDS: HYDROcodone/acetaminophen (*CRX) 10-325 MG TABLET 1 TAB PO ×7 (01:11→23:18)
[2023-07-02] MEDS: KETOROLAC 30 MG/ML VIAL (*BKC) IV PUSH (04:44)
[2023-07-02] MEDS: ONDANSETRON INJ 4 MG/2 ML VIAL IV PUSH (04:44)
[2023-07-02 05:00] VITALS: BP 128/83; PULSE 117; RESP 18; TEMP 36.9; O2SAT 96
[2023-07-02 05:20] LABS: Basophils Percent Auto 0.1 % (0.2-1.2); Hematocrit 28.5 % (37.0-47.0); Hemoglobin 9.6 g/dL (12.0-15.0); Immature Granulocyte Absolute 0.09 K/mm3 (0.00-0.031); Immature Granulocyte Percent A 0.5 % (0-0.5); Lymphocytes Absolute Auto 1.04 K/mm3 (0.9-3.2); Lymphocytes Percent Auto 5.5 % (18.3-44.2); Mean Corpuscular HGB Conc 33.7 g/dl (32-36); Mean Corpuscular Volume 97.9 fl (80-100); Monocytes Absolute Auto 1.3 K/mm3 (0.1-0.6); Monocytes Percent Auto 6.6 % (2.6-8.5); Neutrophils Absolute Auto 16.6 K/mm3 (1.3-6.7); Neutrophils Percent Auto 87.3 % (45.5-73.1); Platelet Count Result 257 k/mm3 (150-375); Red Blood Count 2.91 M/mm3 (4.2-5.4); Red Cell Distribution Width 13.1 % (11.5-14.5)
[2023-07-02 05:31] LABS: Anion Gap 6 mmol/L (8-16); Blood Urea Nitrogen 19 mg/dL (7-17); Calcium 8.4 mg/dL (8.4-10.2); Carbon Dioxide 25 mmol/L (22-30); Chloride 103 mmol/L (98-107); Estimated CRCL calculation 66 ml/min; Estimated Glomerular Filt Rate > 60; Glucose 140 mg/dL (65-110); Potassium 4.4 mmol/L (3.4-5.0); Sodium 134 mmol/L (137-145)
[2023-07-02 08:45] VITALS: BP 111/73; PULSE 108; RESP 16; TEMP 37.1; O2SAT 94
[2023-07-02] MEDS: ENOXAPARIN 40 MG/0.4 ML SYRINGE SUB-Q (09:13)
--- NOTE | 2023-07-02 09:18 | WPDUROPN2 ---
Progress Note: A&P Assessment and Plan (1) Status post hysterectomy: Code(s): Z90.710 - Acquired absence of both cervix and uterus Status: Acute Assessment and Plan: Underwent total abdominal hysterectomy on 07/01/[address] Whitley (2) Right ureteral injury: Qualifiers: Encounter type: initial encounter Qualified Code(s): S37.10XA - Unspecified injury of ureter, initial encounter Code(s): S37.10XA - Unspecified injury of ureter, initial encounter Status: Acute Assessment and Plan: Occurred during open abdominal hysterectomy. Right ureteral stent placed on 07/01/[address] Dyer. KUB showed stent in expected position. Will obtain [place] creatinine labs tomorrow. Serum creatinine is within normal limits. Will plan for stent for 6 weeks and follow-up with Dr. Nj in the office for stent removal with follow-up renal ultrasound and Lasix renal scan 1 month later to ensure appropriate healing. Subjective Subjective Date/Time Seen: 07/02/23 09:18 Interval history: Marga is feeling well today. She endorses abdominal soreness. Denies nausea, vomiting, fever or chills. Reports no issues with De catheter which is draining anderson colored urine. [place] drain has moderate amount of bloody output. She is mildly tachycardic but remains afebrile. WBC is 19.0. Creatinine is within normal limits at 0.7. Review of Systems Review of Systems: All systems reviewed & are unremarkable except as noted in HPI and below Exam Narrative: General: Awake, alert, comfortable, no acute distress HEENT: Normocephalic, atraumatic, sclerae anicteric Respiratory: Normal respiratory effort, no accessory muscle use Abdomen: Abdominal incision covered with dressing that is clean and dry : De catheter draining anderson colored urine, [place] drain with bloody output Skin: Normal coloration, warm and dry Neurologic: No focal neuro deficits noted Psychiatric: Appropriate mood and affect, judgment and insight intact Objective Data Vital Signs Vital Signs: Vital Signs - 24 hr 07/01/23 09:22 07/01/23 16:10 07/01/23 16:25 Temperature 98.5 F 97 F L Pulse Rate 82 103 H 102 H Respiratory Rate 18 13 11 L Blood Pressure 142/90 H 132/86 105/57 L Pulse Oximetry 98 100 100 Oxygen Delivery Room Air Simple Face Mask Simple Face Mask Oxygen Flow Rate 8 8 07/01/23 16:40 07/01/23 16:55 07/01/23 17:10 Temperature Pulse Rate 107 H 110 H 105 H Respiratory Rate 12 12 12 Blood Pressure 96/55 L 103/62 109/69 Pulse Oximetry 100 98 98 Oxygen Delivery Simple Face Mask Room Air Room Air Oxygen Flow Rate 8 07/01/23 17:25 07/01/23 17:40 07/01/23 19:10 Temperature 98.6 F Pulse Rate 116 H 103 H 101 H Respiratory Rate 12 11 L 18 Blood Pressure 109/69 112/71 127/78 Pulse Oximetry 99 99 96 Oxygen Delivery Room Air Room Air Oxygen Flow Rate 07/02/23 05:00 Temperature 98.4 F Pulse Rate 117 H Respiratory Rate 18 Blood Pressure 128/83 Pulse Oximetry 96 Oxygen Delivery Oxygen Flow Rate Intake/Output Intake/Output: Intake & Output 06/29/23 06/30/23 07/01/23 07/02/23 23:59 23:59 23:59 23:59 Intake Total 2550 Output Total 260 650 Balance 2290 -650 Meds/Results Medications: Active Medications Generic Name Dose Route Start Last Admin Trade Name Freq PRN Reason Stop Dose Admin Hydrocodone Bitart/Acetaminophen 1 tab 07/01/23 16:27 Hydrocodone/Acetaminophen (*Crx) 5-325 Mg Tablet PO Q3H PRN Pain Rated 5 or Less Hydrocodone Bitart/Acetaminophen 1 tab 07/01/23 16:27 07/02/23 09:12 Hydrocodone/Acetaminophen (*Crx) 10-325 Mg Tablet PO 1 tab Q3H PRN Administration Pain Rated 6 or Greater Enoxaparin Sodium 40 mg 07/02/23 09:00 07/02/23 09:13 Enoxaparin 40 Mg/0.4 Ml Syringe SUB-Q 40 mg DAILY EDI Administration Lactated Ringer's 1,000 mls @ 30 mls/hr 06/30/23 14:20 07/01/23 19:16 Lr - Lactated Ringers Iv IV
--- NOTE | 2023-07-02 10:11 | WPDANESPN ---
Anes - Prog Note Post-Op Date/Time: 07/02/23 10:11 Cardiovascular status: normal Respiratory status: normal Airway patency: baseline Mental status: baseline Post-Op hydration status: normal Vital Signs: Last Vital Signs Temp 37.1 C 07/02/23 08:45 Pulse 108 H 07/02/23 08:45 Resp 16 07/02/23 08:45 BP 111/73 07/02/23 08:45 Pulse Ox 94 07/02/23 08:45 O2 Del Method Room Air 07/01/23 17:40 O2 Flow Rate 8 07/01/23 16:40 Pain Score (VAS): 07/25 I/O: Intake & Output 07/01/23 07/02/23 07/02/23 23:59 07:59 15:59 Intake Total 2500 150 Output Total 260 650 250 Balance 2240 -650 -100 Laboratory Tests 07/02/23 05:11 07/02/23 05:11 07/02/23 05:11 WBC 19.0 H RBC 2.91 L Hgb 9.6 L D Hct 28.5 L MCV 97.9 MCH 33.0 MCHC 33.7 RDW 13.1 Plt Count 257 MPV 10.0 Immature Gran % (Auto) 0.5 Neut % (Auto) 87.3 H Lymph % (Auto) 5.5 L Calhoun % (Auto) 6.6 Eos % (Auto) 0.0 Baso % (Auto) 0.1 L Lymph # (Auto) 1.04 Calhoun # (Auto) 1.3 H Eos # (Auto) 0.0 Baso # (Auto) 0.0 Abs Immat Gran (auto) 0.09 H Absolute Neuts (auto) 16.6 H Absolute Nucleated RBC 0.0 Nucleated RBC % 0.0 Sodium 134 L Potassium 4.4 Chloride 103 Carbon Dioxide 25 Anion Gap 6 L BUN 19 H Creatinine 0.70 Estim Creat Clear Calc 66 Estimated GFR > 60 Glucose 140 H Calcium 8.4 Post-procedural complaints: nausea (resolved this morning ) Patient Feedback: Patient satisfied with anesthetic care.
--- NOTE | 2023-07-02 10:43 | PM.GYNPNOP ---
GOLF COURSE RANGER - A/P Assessment and plan (1) Encounter for postoperative care: Code(s): Z48.89 - Encounter for other specified surgical aftercare Status: Acute (2) Ureter injury: Code(s): S37.10XA - Unspecified injury of ureter, initial encounter Status: Acute Plan 67-year-old female postop day 1 from a total abdominal hysterectomy, left salpingo-oophorectomy and lengthy adhesiolysis. She had ureter injury that was remedied with ureteral stent. Normal-appearing recovery with concerned about De catheter and she is not feeling stent. Afebrile, tolerating p.o., no flatus yet. Continue observation. Supportive care Postoperative Procedures: Procedures Operation Date: 07/01/23 10:00 Actual Procedure Side Surgeon p Total Open Hysterectomy with Left Oophorectomy, Cystoscopy Left Anthony Whitley MD s Cystoscopy with Right Stent Placement Right Mae Dyer MD Postoperative day: 1 Postoperative status: doing well Postoperative plan: see orders Time Spent With Patient Time: Total time spent is greater than 50% in coordination of care (as documented) at patient's floor/unit and/or counseling patient: Time with patient: 15 - 25 minutes GOLF COURSE RANGER- PN:Subj Post-Op Subjective Date/time seen: 07/02/23 10:43 Discussed De catheter, and has concerns about De catheter. Does not feel stent , incisional pain is unremarkable. Interval history: Marga is feeling well today. She endorses abdominal soreness. Denies nausea, vomiting, fever or chills. Reports no issues with De catheter which is draining anderson colored urine. [place] drain has moderate amount of bloody output. She is mildly tachycardic but remains afebrile. WBC is 19.0. Creatinine is within normal limits at 0.7. Subjective: patient reports feeling better, patient has no complaints and pain is well controlled Exam Const: General: healthy appearing, comfortable and no acute distress Resp: Auscultation: clear to auscultation bilaterally, no rales, no rhonchi and no wheezes Cardio: Rate: regular rate Heart sounds: no click, no murmurs and no rubs GI: Inspection: non-distended Auscultation: normal bowel sounds Extrem: General: normal to inspection, no pedal edema and no calf tenderness GOLF COURSE RANGER - PN: Obj Data Vital Signs Vital Signs: Vital Signs - 24 hr 07/01/23 16:10 07/01/23 16:25 07/01/23 16:40 Temperature 97 F L Pulse Rate 103 H 102 H 107 H Respiratory Rate 13 11 L 12 Blood Pressure 132/86 105/57 L 96/55 L Pulse Oximetry 100 100 100 Oxygen Delivery Simple Face Mask Simple Face Mask Simple Face Mask Oxygen Flow Rate 8 8 8 07/01/23 16:55 07/01/23 17:10 07/01/23 17:25 Temperature Pulse Rate 110 H 105 H 116 H Respiratory Rate 12 12 12 Blood Pressure 103/62 109/69 109/69 Pulse Oximetry 98 98 99 Oxygen Delivery Room Air Room Air Room Air Oxygen Flow Rate 07/01/23 17:40 07/01/23 19:10 07/02/23 05:00 Temperature 98.6 F 98.4 F Pulse Rate 103 H 101 H 117 H Respiratory Rate 11 L 18 18 Blood Pressure 112/71 127/78 128/83 Pulse Oximetry 99 96 96 Oxygen Delivery Room Air Oxygen Flow Rate 07/02/23 08:45 Temperature 98.8 F Pulse Rate 108 H Respiratory Rate 16 Blood Pressure 111/73 Pulse Oximetry 94 Oxygen Delivery Oxygen Flow Rate Intake/Output Intake/Output: Intake & Output 06/29/23 06/30/23 07/01/23 07/02/23 23:59 23:59 23:59 23:59 Intake Total 2550 150 Output Total 260 900 Balance 2290 -750 Meds/Results Medications: Active Medications Generic Name Dose Route Start Last Admin Trade Name Freq PRN Reason Stop Dose Admin Hydrocodone Bitart/Acetaminophen 1 tab 07/01/23 16:27 Hydrocodone/Acetaminophen (*Crx) 5-325 Mg Tablet PO Q3H PRN Pain Rated 5 or Less Hydrocodone Bitart/Acetaminophen 1 tab 07/01/23 16:27 07/02/23 09:12 Hydrocodone/Acetaminophen (*Crx) 10-325 Mg Tablet PO 1 tab Q3H PRN Administration Pain Rated 6 or Greater Enoxaparin Sodium 4
[2023-07-02 12:31] VITALS: BP 101/68; PULSE 92; RESP 16; TEMP 36.6; O2SAT 98
[2023-07-02 19:40] VITALS: BP 101/66; PULSE 114; RESP 18; TEMP 37.1; O2SAT 98
[2023-07-02] MEDS: ONDANSETRON HCL ODT 4 MG TABLET PO (19:48)
[2023-07-03] MEDS: ONDANSETRON HCL ODT 4 MG TABLET PO ×2 (04:55→12:24)
[2023-07-03] MEDS: HYDROcodone/acetaminophen (*CRX) 10-325 MG TABLET 1 TAB PO ×3 (04:55→12:24)
[2023-07-03 05:40] LABS: Creatinine Urine < 3.2 mg/dL
[2023-07-03] MEDS: SIMETHICONE 80 MG TAB.CHEW PO ×2 (08:11→12:25)
[2023-07-03] MEDS: ENOXAPARIN 40 MG/0.4 ML SYRINGE SUB-Q (08:11)
[2023-07-03 08:30] VITALS: BP 115/68; PULSE 115; RESP 20; TEMP 36.4; O2SAT 97
--- NOTE | 2023-07-03 08:37 | PM.GYNPNOP ---
COLOR FINISHER - A/P Assessment and plan (1) Encounter for postoperative care: Code(s): Z48.89 - Encounter for other specified surgical aftercare Status: Acute (2) Right ureteral injury: Qualifiers: Encounter type: initial encounter Qualified Code(s): S37.10XA - Unspecified injury of ureter, initial encounter Code(s): S37.10XA - Unspecified injury of ureter, initial encounter Status: Acute Plan postop day 2. open hysterectomy with left salpingo-oophorectomy and right Ureter injury, stent placement, De catheter, await Urology to tell us about De catheter discontinuation. To discharge with pain meds, short-term follow-up, appears to be recovering normally. Postoperative Procedures: Procedures Operation Date: 07/01/23 10:00 Actual Procedure Side Surgeon p Total Open Hysterectomy with Left Oophorectomy, Cystoscopy Left MD ketty Hein Cystoscopy with Right Stent Placement Right Mae Dyer MD Postoperative day: 2 Postoperative status: doing well Postoperative plan: see orders Time Spent With Patient Time: Total time spent is greater than 50% in coordination of care (as documented) at patient's floor/unit and/or counseling patient: Time with patient: 25 - 35 minutes COLOR FINISHER- PN:Subj Post-Op Subjective Date/time seen: 07/03/23 08:37 Patient feeling well today. Not as good as yesterday. Some fatigue is what she Reports. No unusual abdominal distention or pain. Passing flatus. No vomiting, some nausea. Concerned about folic catheter, Interval history: Marga is feeling well today. She endorses abdominal soreness. Denies nausea, vomiting, fever or chills. Reports no issues with De catheter which is draining anderson colored urine. [place] drain has moderate amount of bloody output. She is mildly tachycardic but remains afebrile. WBC is 19.0. Creatinine is within normal limits at 0.7. Subjective: pain is well controlled Exam Const: General: healthy appearing, comfortable and no acute distress Resp: Auscultation: clear to auscultation bilaterally, no rales, no rhonchi and no wheezes Cardio: Rate: regular rate Heart sounds: no click, no murmurs and no rubs GI: Inspection: non-distended Auscultation: normal bowel sounds Extrem: General: normal to inspection, no pedal edema and no calf tenderness COLOR FINISHER - PN: Obj Data Vital Signs Vital Signs: Vital Signs - 24 hr 07/02/23 08:45 07/02/23 12:31 07/02/23 19:40 Temperature 98.8 F 97.9 F 98.7 F Pulse Rate 108 H 92 114 H Respiratory Rate 16 16 18 Blood Pressure 111/73 101/68 101/66 Pulse Oximetry 94 98 98 Oxygen Delivery 07/02/23 19:40 07/03/23 08:30 Temperature 97.6 F Pulse Rate 115 H Respiratory Rate 20 Blood Pressure 115/68 Pulse Oximetry 97 Oxygen Delivery Room Air Intake/Output Intake/Output: Intake & Output 06/30/23 07/01/23 07/02/23 07/03/23 23:59 23:59 23:59 23:59 Intake Total 2550 720 550 Output Total 260 1850 730 Balance 1390 -1130 -180 Meds/Results Medications: Active Medications Generic Name Dose Route Start Last Admin Trade Name Freq PRN Reason Stop Dose Admin Hydrocodone Bitart/Acetaminophen 1 tab 07/01/23 16:27 Hydrocodone/Acetaminophen (*Crx) 5-325 Mg Tablet PO Q3H PRN Pain Rated 5 or Less Hydrocodone Bitart/Acetaminophen 1 tab 07/01/23 16:27 07/03/23 08:08 Hydrocodone/Acetaminophen (*Crx) 10-325 Mg Tablet PO 1 tab Q3H PRN Administration Pain Rated 6 or Greater Enoxaparin Sodium 40 mg 07/02/23 09:00 07/03/23 08:11 Enoxaparin 40 Mg/0.4 Ml Syringe SUB-Q 40 mg DAILY EDI Administration Ketorolac Tromethamine 30 mg 07/01/23 16:27 07/02/23 04:44 Ketorolac 30 Mg/Ml Vial (*Bkc) IV PUSH 07/06/23 16:26 30 mg Q6H PRN Administration Pain Rated 4-6 Morphine Sulfate 4 mg 07/01/23 16:27 Morphine Sulfate (*Crx) 4 Mg/Ml Inj IV PUSH Q4H PRN Pain Rated 7-10 Ondansetron HCl 4 mg 06/30/23 14:19 07/02/23 04
--- NOTE | 2023-07-03 08:54 | PM.DS ---
DS: Admitting Diagnosis Discharge Date July 03, 2019 for Admitting Diagnosis Pelvic pain, history ovarian cancer, cervical dysplasia, endometrial lesion DS: Summary Hospital Course Hospital Course: patient admitted for hysterectomy. She is a 67-year-old female with history of family ovarian cancer. Cervical dysplasia, endometrial lesion. Very difficult hysterectomy was performed. A great deal of scar tissue was observed and perform hysterectomy. There was ureter injury during the case. A suture was placed around the ureter. After cystoscopy the ureter injury was discovered and corrected. Urology was called. They examined the area. They placed a ureteral stent. She recovered normally over 2 days in the hospital. She was ambulating, tolerating p.o., passing flatus at appropriate times. She was afebrile. Her pain was well controlled. She is discharged on postoperative day 2. Time Spent with Patient Time attestation: Total time spent providing and/or coordinating discharge services: DS: Data Data Completed and Pending Pending studies at discharge: Pending at discharge 07/01/23 13:07 Surgical [PTH] Routine Labs on day of discharge: Labs from last 24 hours 07/03/23 04:56 Urine Creatinine < 3.2 Discharge Plan Discharge Discharging Clinician: Anthony Whitley Patient Disposition: Home, Self-Care Activity: pelvic rest Diet: regular Patient Instructions: Antibiotic Form Stand Alone Forms: General Discharge Information Follow-up/Referrals: Anthony Whitley MD [Physician] - Discharge Medications: New oxycodone-acetaminophen 5-325 mg tablet 1 tablet PO Q4H PRN (Reason: pain) Qty: 25 0RF ondansetron 8 mg tablet,disintegrating 8 mg PO Q8H Qty: 30 3RF Continued fluticasone propionate [Flonase Allergy Relief] 50 mcg/actuation spray,suspension 1 spray intranasal DAILY Rx Instructions: administer into each nostril omeprazole 40 mg capsule,delayed release(DR/EC) 40 mg PO DAILY calcium carbonate-vitamin D3 [Calcium 600 + D(3)] 600 mg-10 mcg (400 unit) Tablet 2 tablet PO DAILY cholecalciferol (vitamin D3) 50 mcg (2,000 unit) Tablet 50 mcg PO DAILY cyanocobalamin (vitamin B-12) 1,000 mcg Tablet 1,000 mcg PO DAILY zinc 50 mg Tablet 50 mg PO DAILY ascorbic acid (vitamin C) 1,000 mg Tablet 1 g PO DAILY Date of admission: 07/01/23 18:04 Primary Care Provider: Amanda,Madyson Admitting Provider: Anthony Whitley Attending physician on admission: Anthony Whitley Condition: Stable
--- NOTE | 2023-07-03 09:41 | WPDUROPN2 ---
Progress Note: A&P Assessment and Plan (1) Status post hysterectomy: Code(s): Z90.710 - Acquired absence of both cervix and uterus Status: Acute Assessment and Plan: Underwent total abdominal hysterectomy on 07/01/[address] Whitley (2) Right ureteral injury: Qualifiers: Encounter type: initial encounter Qualified Code(s): S37.10XA - Unspecified injury of ureter, initial encounter Code(s): S37.10XA - Unspecified injury of ureter, initial encounter Status: Acute Assessment and Plan: Occurred during open abdominal hysterectomy. Right ureteral stent placed on 07/01/[address] Dyer. KUB showed stent in expected position. [place] drain creatinine levels <3. Serum creatinine within normal limits. Okay for De removal and [place] drain removal from urologic standpoint. Will plan for stent for 6 weeks and follow-up with Dr. Nj in the office for stent removal with follow-up renal ultrasound and Lasix renal scan 1 month later to ensure appropriate healing. Subjective Subjective Date/Time Seen: 07/03/23 09:41 Interval history: Marga is feeling improved today. Complains of a mild headache. Continues to endorse abdominal soreness. No nausea, vomiting, fever, chills. Tolerating her diet. Remains afebrile. Review of Systems Review of Systems: All systems reviewed & are unremarkable except as noted in HPI and below Exam Narrative: General: Awake, alert, comfortable, no acute distress HEENT: Normocephalic, atraumatic, sclerae anicteric Respiratory: Normal respiratory effort, no accessory muscle use : De catheter draining clear yellow urine, [place] drain with minimal dark red output Skin: Normal coloration, warm and dry Neurologic: No focal neuro deficits noted Psychiatric: Appropriate mood and affect, judgment and insight intact Objective Data Vital Signs Vital Signs: Vital Signs - 24 hr 07/02/23 12:31 07/02/23 19:40 07/02/23 19:40 Temperature 97.9 F 98.7 F Pulse Rate 92 114 H Respiratory Rate 16 18 Blood Pressure 101/68 101/66 Pulse Oximetry 98 98 Oxygen Delivery Room Air 07/03/23 08:30 Temperature 97.6 F Pulse Rate 115 H Respiratory Rate 20 Blood Pressure 115/68 Pulse Oximetry 97 Oxygen Delivery Intake/Output Intake/Output: Intake & Output 02/1307/01/23 07/02/23 07/03/23 23:59 23:59 23:59 23:59 Intake Total 2550 720 550 Output Total 260 5230 730 Balance 3682 -1277 -429 Meds/Results Medications: Active Medications Generic Name Dose Route Start Last Admin Trade Name Freq PRN Reason Stop Dose Admin Hydrocodone Bitart/Acetaminophen 1 tab 07/01/23 16:27 Hydrocodone/Acetaminophen (*Crx) 5-325 Mg Tablet PO Q3H PRN Pain Rated 5 or Less Hydrocodone Bitart/Acetaminophen 1 tab 07/01/23 16:27 07/03/23 08:08 Hydrocodone/Acetaminophen (*Crx) 10-325 Mg Tablet PO 1 tab Q3H PRN Administration Pain Rated 6 or Greater Enoxaparin Sodium 40 mg 07/02/23 09:00 07/03/23 08:11 Enoxaparin 40 Mg/0.4 Ml Syringe SUB-Q 40 mg DAILY EDI Administration Ketorolac Tromethamine 30 mg 07/01/23 16:27 07/02/23 04:44 Ketorolac 30 Mg/Ml Vial (*Bkc) IV PUSH 07/06/23 16:26 30 mg Q6H PRN Administration Pain Rated 4-6 Morphine Sulfate 4 mg 07/01/23 16:27 Morphine Sulfate (*Crx) 4 Mg/Ml Inj IV PUSH Q4H PRN Pain Rated 7-10 Ondansetron HCl 4 mg 06/30/23 14:19 07/02/23 04:44 Ondansetron Inj 4 Mg/2 Ml Vial IV PUSH 4 mg ONCE PRN Administration Nausea Ondansetron HCl 4 mg 07/01/23 16:27 07/01/23 18:54 Ondansetron Inj 4 Mg/2 Ml Vial IV PUSH 4 mg Q6H PRN Administration Nausea Ondansetron HCl 4 mg 07/02/23 19:56 07/03/23 04:55 Ondansetron Hcl Odt 4 Mg Tablet PO 4 mg Q6H PRN Administration Nausea And Vomiting Simethicone 80 mg 07/01/23 17:00 07/03/23 08:11 Simethicone 80 Mg Tab.Chew PO 80 mg TIDWM EDI Administration
== END 2023-07-03 16:10 | disposition home or self-care (01) | DRG 741 ==
LOC: ANHOB2 07-03 08:54
PROVIDERS: Physician Assistant; Urology; Admitting Provider Obstetrics & Gynecology; PCP Family Medicine; Visit Provider Obstetrics & Gynecology
PROC: 0UT9FZZ Resection of Uterus, Via Natural or Artificial Opening With Percutaneous Endoscopic Assistance (ICD-10-PCS; principal; 2023-07-01 10:00)
PROC: 0T768DZ Dilation of Right Ureter with Intraluminal Device, Via Natural or Artificial Opening Endoscopic (ICD-10-PCS; CPT 52352; 2023-07-01 10:00)
DX: D06.9 Carcinoma in situ of cervix, unspecified (principal); N99.81 Other intraoperative complications of genitourinary system; N13.5 Crossing vessel and stricture of ureter without hydronephrosis; Y83.8 Other surgical procedures as the cause of abnormal reaction of the patient, or of later complication, without mention of misadventure at the time of the procedure; N94.89 Other specified conditions associated with female genital organs and menstrual cycle; K21.9 Gastro-esophageal reflux disease without esophagitis; Z53.31 Laparoscopic surgical procedure converted to open procedure; Z87.891 Personal history of nicotine dependence; Z80.41 Family history of malignant neoplasm of ovary
CPT/HCPCS: 36415; 74018; 80048; 82570; 85025; 88307; 88342; 99199; A9270; C1758; C1769; C2617; J0690; J1100; J1170; J1200; J1650; J1885; J2250; J2371; J2405; J2704; J3010; J7030; J7120; Q9968

== ENCOUNTER 2023-09-09 09:24 | Outpatient (CLI) | payer MEDICARE, SELFPAY ==
--- NOTE | ~2023-09-09 | NM_ITS ---
EXAMINATION: JAYA herndon renal scan DATE: 09/09/2023 11:32 INDICATION: Right ureteral injury TECHNIQUE: 7.5 mCi Tc-99m MAG3 was administered IV. 40 mg furosemide was administered IV immediately afterward. The patient was scanned in the supine position. A posterior abdominal radionuclide angiog kylah was obtained. A subsequent time course of static images of the kidneys, ureters, and bladder was obtained. COMPARISON: None FINDINGS: The posterior abdominal radionuclide angiogram and sequential static images show normal size, positio n, and morphology of the kidneys. Peak renal parenchymal uptake was 2.5 min in left kidney and 3.5 mi n in right kidney (normal peak 3-5 minutes). The relative early renal uptake was 52% on the left and 48% on the right (<40% is abnormal). There appears to be dilation of the right renal pelvis consiste nt with moderate hydronephrosis evident on the immediately prior renal ultrasound. No abnormalities o f the ureters or bladder are seen. T1/2 for clearance of activity from the left kidney and proximal collecting system was 6 minutes. T1/2 for clearance of activity from the right kidney and proximal collecting system was 19 minutes. Notes on interpretation: T1/2 <10 minutes is normal, 10-15 minutes is low grade obstruction of questi onable clinical significance, 15-20 minutes is partial obstruction that is likely clinically signific ant, >20 minutes is high grade obstruction. Note that false positives may be seen with supine positio bay, dehydration, severely dilated nonobstructed kidney, atonic collecting system, poor renal functi on, and chronic furosemide use. IMPRESSION: 1. Symmetric kidney function. 2. Moderately delayed activity clearance from the right kidney with moderate hydronephrosis on immed iately prior renal ultrasound consistent with likely clinically significant partial obstruction. 3. Normal activity clearance from the left kidney. Reviewed, dictated and finalized at location A. IMPRESSION: 1. Symmetric kidney function. 2. Moderately delayed activity clearance from the right kidney with moderate h ydronephrosis on immediately prior renal ultrasound consistent with likely clin ically significant partial obstruction. 3. Normal activity clearance from the left kidney.
--- NOTE | ~2023-09-09 | US_ITS ---
US retroperitoneal comp 09/09/2023 10:45 Procedure: Realtime transabdominal ultrasound of the kidneys and bladder. Indication: Right renal injury. Recent stent placement. Comparison: KUB dated 07/01/2023 Findings: Renal echotexture is normal bilaterally without contour deforming mass or renal calculus. T here is moderate right hydronephrosis. The right kidney measures 10.8 cm and left kidney measures 10. 9 cm. Bladder within normal limits. Impression: 1: Moderate right hydronephrosis. Reviewed, dictated and finalized at location B. Impression: 1: Moderate right hydronephrosis.
== END 2023-09-09 09:25 | disposition home or self-care (01) ==
LOC: ANHIMG 09:26
PROVIDERS: PCP Family Medicine; Visit Provider Urology
DX: S37.10XA Unspecified injury of ureter, initial encounter (principal); N13.30 Unspecified hydronephrosis
CPT/HCPCS: 76770; 78708; A9562

== ENCOUNTER 2023-09-18 10:20 | Outpatient (CLI) | payer MEDICARE, SELFPAY | END 2023-09-18 10:21 | disposition home or self-care (01) | LOC: ANHSURGERY 10:23 | PROVIDERS: PCP Family Medicine; Visit Provider Urology | DX: N13.5 Crossing vessel and stricture of ureter without hydronephrosis (principal); Z01.818 Encounter for other preprocedural examination | CPT/HCPCS: 87086 ==

== ENCOUNTER 2023-09-23 01:32 | Day surgery (SDC) | payer MEDICARE, SELFPAY ==
[2023-09-17 11:39] VITALS: BMI 25.7
--- NOTE | 2023-09-17 11:48 | PC.NURSE ---
PRE-OP INSTRUCTIONS, PLEASE READ CAREFULLY Report to the Outpatient Waiting Room, entrance under the green pavilion located off [facility], at time _0600_ on date _09/23/23_. Planned Procedure Time: _0730_. Time changes happen often and if your time is changed the preop area will call you the afternoon before. - You and your visitor will be asked to self-screen and do not enter if you have any COVID symptoms. - A mask is optional within the hospital at this time. Patients may have clear liquids (water, carbonated beverages, clear teas, apple juice) until 3 hours prior to surgery with a maximum of 20 ounces. - No food from midnight until time of surgery Take the following medications with a SIP of water the morning of surgery: _NONE_ DO NOT STOP ANY OF YOUR OTHER PRESCRIPTION MEDICATIONS PRIOR TO SURGERY ?EXCEPT THE FOLLOWING Medications to discontinue per ANESTHESIA - _VITAMINS/SUPPLEMENTS 3 DAYS PRIOR TO SURGERY, Date to take last dose 09/19/23_ Please no make-up, nail armenian, hairspray, perfume, deodorant, or body powder the day of surgery. No jewelry (including any body piercings) or valuables the day of surgery, leave them at home. Please take a shower or bath the night before, or the morning of, surgery with an antibacterial soap. Wear comfortable, loose fitting clothing. - Jewelry must be removed prior to entering the operating room. Rings and piercings that are not removed may be cut off. - The hospital will not accept responsibility for valuables. - Please leave all valuables, including medications, at home the day of surgery. If you are going home after surgery, a licensed lumber stacker driver must drive you home. - NO public transportation without another adult if you receive anesthesia. - We recommend that an adult stay with you for 24 hours following discharge. - We also recommend that you do not drive, make important decision, drink alcoholic beverages, or take any drugs that were not prescribed by your health care provider for at least 24 hours after your discharge time. Follow any additional instructions given to you from your surgeon. If you or anyone in your household have experienced Covid symptoms in the past week, please notify your surgeon or the nurse liaison at the phone number below for possible testing. Telephone instructions given to _PATIENT_and asked if any additional questions and then verbalized understanding. Patient advised to call surgeon office or pre surgery nurse liaison [phone] if any additional questions.
[2023-09-23] VITALS (7 sets, daily range): BP systolic 112–138; BP diastolic 65–92; PULSE 74–88; RESP 9–14; TEMP 36.1–36.2; O2SAT 96–100; BMI 26.6
--- NOTE | ~2023-09-23 | XR_ITS ---
EXAMINATION: XR retrograde pyelo w/stent RT DATE: 09/23/2023 08:10 INDICATION: Right ureter obstruction. TECHNIQUE: 78 intraoperative fluoroscopic views of the abdomen and pelvis were obtained. I was not pr esent. Fluoroscopy exposure time was 41 seconds. COMPARISON: None. FINDINGS: The right-sided retrograde pyelogram demonstrates a globular mobile filling defect in the r enal pelvis that may be a gas bubble. There is a right internal ureteral stent in expected position. IMPRESSION: 1. Right internal ureteral stent in expected position. Reviewed, dictated and finalized at location A.
[2023-09-23] MEDS: LACTATED RINGERS 1,000 ML 30 ML IV CONT (06:35)
[2023-09-23] MEDS: ACETAMINOPHEN 500 MG TABLET 1000 MG PO (06:48)
--- NOTE | 2023-09-23 06:58 | WPDANESEPPF ---
Anes - Initial Pre Proc Eval Procedure: Operation Date: 09/23/23 07:30 Proposed Procedures p Cystoscopy, Right Retrograde Pyelogram, Right Ureteral Stent Placement - Mae Dyer MD Date/Time: 09/23/23 06:58 Surgeon: Mae Dyer MD Pre Op Diagnosis: right ureteral obstruction Patient Data Age: 67 Gender: F Height: 1.63 m Weight: 70.5 kg Last Vital Signs Temp 36.1 C L 09/23/23 06:10 Pulse 88 09/23/23 06:10 Resp 14 09/23/23 06:10 BP 138/92 H 09/23/23 06:10 Pulse Ox 96 09/23/23 06:10 O2 Del Method Room Air 09/23/23 06:10 Allergies Allergy/AdvReac Type Severity Reaction Status Date / Time Sulfa (Sulfonamide Allergy Unknown Swelling Verified 09/23/23 06:43 Antibiotics) of Lip/Tongue/Throat Home Medications Medication Instructions Recorded Confirmed Type fluticasone propionate 50 1 spray intranasal DAILY 02/07/22 09/17/23 History mcg/actuation nasal spray,suspension (Flonase Allergy Relief) omeprazole 40 mg capsule,delayed 40 mg PO DAILY 02/07/22 09/17/23 History release ascorbic acid (vitamin C) 1,000 mg 1 g PO DAILY 03/31/23 09/23/23 History tablet calcium carbonate 600 mg-vitamin 2 tablet PO DAILY 03/31/23 09/23/23 History D3 10 mcg (400 unit) tablet (Calcium 600 + D(3)) cholecalciferol (vitamin D3) 50 50 mcg PO DAILY 03/31/23 09/23/23 History mcg (2,000 unit) tablet cyanocobalamin (vitamin B-12) 1,000 mcg PO DAILY 03/31/23 09/23/23 History 1,000 mcg tablet zinc 50 mg tablet 50 mg PO DAILY 03/31/23 09/23/23 History loratadine 10 mg tablet (Claritin) 10 mg PO DAILY 09/17/23 09/17/23 History ondansetron 8 mg disintegrating 8 mg PO Q8H PRN Nausea 09/17/23 09/17/23 History tablet pyridoxine (vitamin B6) 100 mg 100 mg PO BID 09/17/23 09/23/23 History tablet Patient hx anesthesia problems: none Family hx anesthesia problems: none Results Review: All pre-operative results and documents have been reviewed as part of the pre-operative evaluation. [facility] Past Medical History Medical History GERD (gastroesophageal reflux disease) History of stress test Left knee pain SVT (supraventricular tachycardia) Surgical History Surgical History History of cardiac radiofrequency ablation 2018 Hx of removal of ovary Hx of tonsillectomy Status post medial meniscectomy of left knee (~04/08/23) Family History Family History Father Hypertension Mother Family history of malignant neoplasm Social History Social History Smoking packs per day: 1 Smoking cigarettes per day: 20.0 Years smoked: 8 Smoking pack-years: 8.00 Smoking status: Former smoker Tobacco type: cigarettes Second hand tobacco smoke exposure: No Smoking end date: 11/15/84 Additional smoking assessment comments: STOPPED 1999 Alcohol intake: current Drinks per week: 4 Substance use: never Substance use type: does not use Lack of Transportation: No Lack of Food: Never True Current Housing: I Have Housing Concerned About Future Housing: No Difficulty Paying Gas/Electric Bills: No Difficulty Paying for Meds: No Currently Unemployed: No Education: High School Diploma/GED Difficulty w/ Childcare or Family Care: No Living arrangements: with family Additional living arrangements comments: [facility] Spiritual care concerns: No Anes - Eval Final PreProcedure Day of Procedure 09/23/23 06:58 Patient weight: overweight Heart: regular rate and rhythm Lungs: decreased breath sounds Airway: Mallampati scale class III Neurological: alert and oriented Last oral intake: >/= 8 hours ASA classification: III Emergent: no Anesthetic plan: proceed Anesthesia type and monitoring: general LMA and standard
--- NOTE | 2023-09-23 07:36 | PM.IMHP ---
H&P: HPI History of Present Illness Date/Time: 09/23/23 07:36 Chief Complaint: Right hydronephrosis PMFSH Past Medical History Medical History GERD (gastroesophageal reflux disease) History of stress test Left knee pain SVT (supraventricular tachycardia) Surgical History Surgical History History of cardiac radiofrequency ablation 2018 Hx of removal of ovary Hx of tonsillectomy Status post medial meniscectomy of left knee (~04/08/23) Family History Family History Father Hypertension Mother Family history of malignant neoplasm Social History Social History Smoking packs per day: 1 Smoking cigarettes per day: 20.0 Years smoked: 8 Smoking pack-years: 8.00 Smoking status: Former smoker Tobacco type: cigarettes Second hand tobacco smoke exposure: No Smoking end date: 11/15/84 Additional smoking assessment comments: STOPPED 1999 Alcohol intake: current Drinks per week: 4 Substance use: never Substance use type: does not use Lack of Transportation: No Lack of Food: Never True Current Housing: I Have Housing Concerned About Future Housing: No Difficulty Paying Gas/Electric Bills: No Difficulty Paying for Meds: No Currently Unemployed: No Education: High School Diploma/GED Difficulty w/ Childcare or Family Care: No Living arrangements: with family Additional living arrangements comments: [facility] Spiritual care concerns: No Meds Home Medications and Allergies Home Medications Medication Instructions Recorded Confirmed Type fluticasone propionate 50 1 spray intranasal DAILY 02/07/22 09/17/23 History mcg/actuation nasal spray,suspension (Flonase Allergy Relief) omeprazole 40 mg capsule,delayed 40 mg PO DAILY 02/07/22 09/17/23 History release ascorbic acid (vitamin C) 1,000 mg 1 g PO DAILY 03/31/23 09/23/23 History tablet calcium carbonate 600 mg-vitamin 2 tablet PO DAILY 03/31/23 09/23/23 History D3 10 mcg (400 unit) tablet (Calcium 600 + D(3)) cholecalciferol (vitamin D3) 50 50 mcg PO DAILY 03/31/23 09/23/23 History mcg (2,000 unit) tablet cyanocobalamin (vitamin B-12) 1,000 mcg PO DAILY 03/31/23 09/23/23 History 1,000 mcg tablet zinc 50 mg tablet 50 mg PO DAILY 03/31/23 09/23/23 History loratadine 10 mg tablet (Claritin) 10 mg PO DAILY 09/17/23 09/17/23 History ondansetron 8 mg disintegrating 8 mg PO Q8H PRN Nausea 09/17/23 09/17/23 History tablet pyridoxine (vitamin B6) 100 mg 100 mg PO BID 09/17/23 09/23/23 History tablet Allergies Allergy/AdvReac Type Severity Reaction Status Date / Time Sulfa (Sulfonamide Allergy Unknown Swelling Verified 09/23/23 06:43 Antibiotics) of Lip/Tongue/Throat Vital Signs Vital Signs - 24 hr 09/23/23 06:10 Temperature 36.1 C L Pulse Rate 88 Respiratory Rate 14 Blood Pressure 138/92 H Pulse Oximetry 96 Oxygen Delivery Room Air Exam Narrative: awake, alert, no acute distress H&P: Results Imaging US - abdomen: My impression: renal US showing right . Lasix renal scan with right partial obsturction Assessment and Plan Assessment and plan (1) Ureter injury: Code(s): S37.10XA - Unspecified injury of ureter, initial encounter Status: Acute Assessment and Plan: Right ureteral injury during hysterectomy 07/01/23 managed with ureteral stent. Pt with presence of right obstruction on imaging after stent removal Plan Plan for right retrograde pyelogram and ureteral stent insertion. Risks, benefits and alternatives discussed. Pt agrees to proceed
[2023-09-23] MEDS: ceFAZolin 2 GM/D5W 50 ML 2 GM/50 ML BAG IVPB (07:39)
--- NOTE | 2023-09-23 07:40 | WPDHPUPDATE1 ---
History and Physical Update Update Date/Time: 09/23/23 07:40 History and Physical has been reviewed, including an updated exam of the patient. There are NO changes in the patient's condition. Risks, benefits, and alternatives have been discussed and questions answered. Patient agrees to proceed with procedure.
[2023-09-23] MEDS: LIDOCAINE HCL 2% GEL UROJET 10 ML PKG MUCOUS MEM (07:59)
--- NOTE | 2023-09-23 08:06 | P.OP_ITS ---
Procedure Note - Detailed Date of Procedure 09/23/23 Pre-op Diagnosis right ureteral obstruction Post-op Diagnosis Same Procedure Performed Cystoscopy, right retrograde pyelogram, right ureteral stent insertion Surgeon Mae Dyer MD Anesthesia General Findings - Slight narrowing and tortuosity of the right distal ureter, right hydronephrosis -placement of right ureteral stent -6 F Description of Procedure Informed consent was obtained. Patient taken the operating. She was given IV antibiotics. She was induced with anesthesia. She was prepped and draped in normal sterile fashion in the dorsal lithotomy position. A 20 F rigid cystoscope was inserted through the urethra into bladder. Within the bladder revealed no mucosal abnormalities. We cannulated the right ureteral orifice with a 5 F open-ended catheter. Retrograde pyelogram was performed in approximately 2 to 3 cm above the ureterovesical junction there was tortuosity and narrowing of the ureter for a length of approximately 1 to 2 cm. There was moderate right hydronephrosis. We were able to easily navigate a wire past this area of narrowing and then placed a 6 F variable length stent with a curl in the renal pelvis and a curl in the bladder. The bladder was emptied, 10 cc lid ocaine were instilled patient was awakened taken recovery in stable condition. Patient currently receiving chemotherapy until November. We will plan to leave her right ureteral stent in place until December. Plan stent removal in 3 months and then repeat renal ultrasound and Lasix renal scan after stent removal. If continued obstruction of her ureter at that time, she may necessitate additional interventions including dilation or reconstruction Complications No immediate complications Condition Stable Disposition PACU
== END 2023-09-23 09:38 | disposition home or self-care (01) ==
PROVIDERS: PCP Family Medicine; Visit Provider Urology
PROC: (CPT 52352; principal; 2023-09-23 07:30)
DX: N13.1 Hydronephrosis with ureteral stricture, not elsewhere classified (principal); K21.9 Gastro-esophageal reflux disease without esophagitis; Z87.891 Personal history of nicotine dependence
CPT/HCPCS: 52332; 74420; 87086; A9270; C1758; C1769; C2617; J0690; J1100; J2250; J2405; J2704; J3010; J7120; Q9966

== ENCOUNTER 2024-02-17 13:38 | Outpatient (CLI) | payer MEDICARE, SELFPAY ==
--- NOTE | ~2024-02-17 | US_ITS ---
EXAMINATION: US retroperitoneal comp DATE: 02/17/2024 15:10 INDICATION: Injury of right ureter. TECHNIQUE: Multiple ultrasound grayscale images of the kidneys were obtained. COMPARISON: Ultrasound 09/09/2023 FINDINGS: The right kidney measures 11.0 x 4.5 x 3.9 cm. The left kidney measures 11.4 x 5.2 x 4.1 cm. The kidn eys demonstrate normal parenchymal echogenicity. There is mild right hydronephrosis. The bladder is n ormal. IMPRESSION: 1. Mild right hydronephrosis. Reviewed, dictated and finalized at location A.
--- NOTE | ~2024-02-17 | NM_ITS ---
EXAMINATION: JAYA herndon renal scan DATE: 02/17/2024 14:54 INDICATION: Injury of right ureter. TECHNIQUE: 7.9 mCi Tc-99m MAG3 was administered IV. 40 mg furosemide was administered IV immediately afterward. The patient was scanned in the supine position. A posterior abdominal radionuclide angiog kylah was obtained. A subsequent time course of static images of the kidneys, ureters, and bladder was obtained. COMPARISON: Ultrasound kidneys 02/17/2024, 09/09/2023 FINDINGS: The posterior abdominal radionuclide angiogram and sequential static images show normal siz e, position, and morphology of the kidneys. Peak renal parenchymal uptake was 2 min in right kidney a nd 2 min in left kidney (normal peak 3-5 minutes). The relative early renal uptake was 47% on the ri ght and 53% on the left (<40% is abnormal). No abnormalities of the ureters or bladder are seen. T1/2 for clearance of activity from the right kidney and proximal collecting system was 13 minutes. T1/2 for clearance of activity from the left kidney and proximal collecting system was 5 minutes. IMPRESSION: 1. Symmetric kidney function. 2. Mildly delayed clearance of activity from the right kidney and proximal collecting system, consis tent with low grade obstruction of questionable clinical significance. Reviewed, dictated and finalized at location A. IMPRESSION: 1. Symmetric kidney function. 2. Mildly delayed clearance of activity from the right kidney and proximal col lecting system, consistent with low grade obstruction of questionable clinical significance.
== END 2024-02-17 13:39 | disposition home or self-care (01) ==
PROVIDERS: PCP Family Medicine; Visit Provider Urology
DX: N13.30 Unspecified hydronephrosis (principal); S37.10XA Unspecified injury of ureter, initial encounter; X58.XXXA Exposure to other specified factors, initial encounter
CPT/HCPCS: 76770; 78708; A9562